=== PATIENT | female | born 1950 | race Caucasian/White ===

== ENCOUNTER 2018-10-17 22:29 | Inpatient (IN) | payer MEDICARE, MEDICAID ==
[~2018-10-17] VITALS: Ht 182.9 cm; Wt 93.8 kg
[2018-10-18] VITALS: BP 149/88
[2018-10-18] MEDS ORDERED: GUAIFENESIN/COD200MG-20MG/10ML LIQUID PO PRN (00:30)
[2018-10-18] MEDS ORDERED: hydrALAzine 20 MG/ML, 1ML IVPush PRN (00:30)
[2018-10-18] MEDS ORDERED: ACET500T76 PO (00:52)
[2018-10-18] MEDS ORDERED: LEVO88TA2 PO (00:54)
[2018-10-18] MEDS ORDERED: PREG225C PO (00:55)
[2018-10-18] MEDS ORDERED: METO50TA6 PO (00:57)
[2018-10-18] MEDS ORDERED: AMLO10TA8 PO (00:58)
[2018-10-18] MEDS ORDERED: GLIP5TAB10 PO (00:59)
[2018-10-18] MEDS ORDERED: SAXA5TAB PO (00:59)
[2018-10-18] MEDS ORDERED: ALLO100T30 PO (01:00)
[2018-10-18] MEDS ORDERED: PLEASE ENTER ALLERGIES MC SCH (01:00)
[2018-10-18] MEDS ORDERED: ACETAMINOPHEN 500 MG TABLET PO PRN (01:00)
[2018-10-18] MEDS ORDERED: HYDR-3237 PO (01:01)
[2018-10-18] MEDS ORDERED: METH750T2 PO (01:01)
[2018-10-18] MEDS ORDERED: CHOL1CRY3 IV (01:03)
[2018-10-18] MEDS ORDERED: SIMV40TA3 PO (01:04)
[2018-10-18] MEDS ORDERED: HYDR25PO5 PO (01:04)
[2018-10-18] MEDS ORDERED: AROM1FL. PO (01:05)
[2018-10-18] MEDS ORDERED: MAGN400T36 PO (01:06)
[2018-10-18] MEDS ORDERED: TIOT4MIS5 INH (01:07)
[2018-10-18] MEDS: methylPREDNISolone SOD SUCC 40 MG/ML IVPush SCH ×4 (01:25→18:48)
[2018-10-18] MEDS: SODIUM CHLORIDE 0.9% 1,000 ML IV SCH ×3 (01:25→23:01)
[2018-10-18] MEDS: OXYcodone IR 5MG TABLET PO PRN ×3 (01:25→20:26)
[2018-10-18 01:33] VITALS: BP 149/88
[2018-10-18] MEDS ORDERED: ALBUTEROL/IPRATROPIUM 2.5MG/0.5MG, 3 ML ONE (02:10)
[2018-10-18] MEDS: ALBUTEROL/IPRATROPIUM 2.5MG/0.5MG, 3 ML NPPB SCH ×6 (02:13→19:53)
[2018-10-18 04:41] LABS: BASOPHILS % (AUTO) 0 % (0-1); EOSINOPHILS % (AUTO) 0 % (1-7); LYMPHOCYTES # (AUTO) 0.52 x10^3/uL (1-3.4); LYMPHOCYTES % (AUTO) 7 % (22-44); MD NO; MEAN CORPUSCULAR HGB CONC 34.4 g/dL (32.4-35.8); MEAN CORPUSCULAR VOLUME 90.1 fL (80-100); MEAN PLATELET VOLUME 8.7 fL (7.4-10.4); MONOCYTES # (AUTO) 0.02 x10^3/uL (0.2-0.8); MONOCYTES % (AUTO) 0 % (2-9); NEUTROPHILS # (AUTO) 7.51 x10^3/uL (1.8-6.8); NEUTROPHILS % (AUTO) 93 % (42-75); PLATELET COUNT 258 x10^3/uL (130-400); RED CELL DISTRIBUTION WIDTH 16.6 % (9.6-15.2)
[2018-10-18 04:51] LABS: ANION GAP 12 mmol/L (5-15); CALCIUM 9.2 mg/dL (8.5-10.1); CHLORIDE 97 mmol/L (98-107)
[2018-10-18 05:12] LABS: HEMOGLOBIN A1C 8.3 % (4.2-6.3)
[2018-10-18] MEDS: INSULIN LISPRO 100 UNITS/ML, PEN SQ-INSULIN SCH ×4 (07:00→20:58)
[2018-10-18] MEDS ORDERED: INSULIN LISPRO 100 UNITS/ML, PEN SQ-INSULIN STA (08:49)
[2018-10-18] MEDS ORDERED: INSULIN GLARGINE 100 UNITS/ML, PEN SQ-INSULIN STA (08:50)
[2018-10-18 08:58] VITALS: BP 151/79
[2018-10-18] MEDS: DOXYCYCLINE 50MG CAPSULE PO SCH ×2 (09:00→20:58)
[2018-10-18] MEDS: CEFTRIAXONE PMX 2GM/50ML 50 ML IV SCH (09:12)
[2018-10-18] MEDS ORDERED: LIDOCAINE-MPF 1%, 5ML ONE (10:50)
[2018-10-18] MEDS ORDERED: NALOXONE 1 MG/ML, 2ML ONE (11:33)
[2018-10-18] MEDS ORDERED: MIDAZOLAM 1 MG/ML, 5ML ONE (11:33)
[2018-10-18] MEDS ORDERED: FENTANYL PF 100 MCG/2ML ONE (11:33)
[2018-10-18] MEDS ORDERED: FLUMAZENIL 0.1 MG/1 ML, 5ML ONE (11:33)
[2018-10-18] MEDS ORDERED: DOXYCYCLINE 100MG TABLET ONE ×2 (12:22→12:27)
[2018-10-18 14:20] VITALS: BP 147/73
[2018-10-18] MEDS ORDERED: INSULIN GLARGINE 100 UNITS/ML, PEN SQ-INSULIN ONE (16:19)
[2018-10-18] MEDS ORDERED: INSULIN LISPRO 100 UNITS/ML, PEN SQ-INSULIN ONE ×2 (16:19→21:30)
[2018-10-18 19:00] VITALS: BP 157/77
[2018-10-18] MEDS ORDERED: INSULIN GLARGINE 100 UNITS/ML, PEN SQ-INSULIN SCH (21:00)
[2018-10-18] MEDS ORDERED: INSULIN LISPRO 100 UNITS/ML, PEN SQ-INSULIN SCH (21:00)
[2018-10-19] MEDS: ALBUTEROL/IPRATROPIUM 2.5MG/0.5MG, 3 ML NPPB SCH ×3 (00:11→10:52)
[2018-10-19] MEDS: OXYcodone IR 5MG TABLET PO PRN ×3 (00:34→10:10)
[2018-10-19] MEDS: methylPREDNISolone SOD SUCC 40 MG/ML IVPush SCH ×2 (00:53→06:12)
[2018-10-19 00:57] VITALS: BP 168/84
[2018-10-19 04:56] LABS: ALANINE AMINOTRANSFERASE 18 U/L (12-78); ANION GAP 8 mmol/L (5-15); CALCIUM 8.7 mg/dL (8.5-10.1); CHLORIDE 98 mmol/L (98-107)
[2018-10-19 04:59] LABS: ALKALINE PHOSPHATASE 142 U/L (45-117); BILIRUBIN,TOTAL 0.3 mg/dL (0.2-1.0); CREATININE 0.97 mg/dL (0.55-1.02); TOTAL PROTEIN 6.7 g/dL (6.4-8.2)
[2018-10-19 05:15] LABS: BASOPHILS % (AUTO) 0 % (0-1); EOSINOPHILS % (AUTO) 0 % (1-7); LYMPHOCYTES # (AUTO) 0.44 x10^3/uL (1-3.4); LYMPHOCYTES % (AUTO) 4 % (22-44); MD NO; MEAN CORPUSCULAR HGB CONC 34.3 g/dL (32.4-35.8); MEAN CORPUSCULAR VOLUME 90.3 fL (80-100); MEAN PLATELET VOLUME 9.3 fL (7.4-10.4); MONOCYTES # (AUTO) 0.18 x10^3/uL (0.2-0.8); MONOCYTES % (AUTO) 2 % (2-9); NEUTROPHILS # (AUTO) 9.92 x10^3/uL (1.8-6.8); NEUTROPHILS % (AUTO) 94 % (42-75); PLATELET COUNT 255 x10^3/uL (130-400); RED BLOOD COUNT 3.49 x10^6/uL (3.82-5.3); RED CELL DISTRIBUTION WIDTH 16.9 % (9.6-15.2)
[2018-10-19] MEDS ORDERED: INSULIN GLARGINE 100 UNITS/ML, PEN SQ-INSULIN ONE ×2 (05:30→11:30)
[2018-10-19] MEDS: INSULIN LISPRO 100 UNITS/ML, PEN SQ-INSULIN SCH (07:00)
[2018-10-19] MEDS ORDERED: INSULIN LISPRO 100 UNITS/ML, PEN SQ-INSULIN SCH (07:30)
[2018-10-19 07:32] VITALS: BP 154/89
[2018-10-19] MEDS ORDERED: INSULIN LISPRO 100 UNITS/ML, PEN SQ-INSULIN ONE ×2 (08:30→11:30)
[2018-10-19] MEDS: CEFTRIAXONE PMX 2GM/50ML 50 ML IV SCH (09:07)
[2018-10-19] MEDS: DOXYCYCLINE 50MG CAPSULE PO SCH (09:07)
[2018-10-19] MEDS ORDERED: MAGNESIUM SULFATE PMX 2GM/50ML 50 ML IV ONE (10:00)
[2018-10-19] MEDS ORDERED: POTASSIUM PHOSPHATE 44 MEQ in SODIUM CHLORIDE 0.9% 500 ML IV ONE (10:00)
[2018-10-19 12:21] VITALS: BP 155/78
== END 2018-10-19 13:53 | disposition left against medical advice (07) | DRG 189 ==
LOC: 3NW 23:57
PROVIDERS: ADMIT Family Medicine; ATTEND Family Medicine
PROC: 0BBJ3ZX Excision of Left Lower Lung Lobe, Percutaneous Approach, Diagnostic (ICD-10-PCS; principal; 2018-10-18)
PROC: 0WJB3ZZ Inspection of Left Pleural Cavity, Percutaneous Approach (ICD-10-PCS; 2018-10-18)
DX: J96.20 Acute and chronic respiratory failure, unspecified whether with hypoxia or hypercapnia (principal); J18.9 Pneumonia, unspecified organism; N17.0 Acute kidney failure with tubular necrosis; J44.1 Chronic obstructive pulmonary disease with (acute) exacerbation; J90 Pleural effusion, not elsewhere classified; E46 Unspecified protein-calorie malnutrition; J44.0 Chronic obstructive pulmonary disease with (acute) lower respiratory infection; R91.8 Other nonspecific abnormal finding of lung field; E03.9 Hypothyroidism, unspecified; E11.9 Type 2 diabetes mellitus without complications; E78.5 Hyperlipidemia, unspecified; E83.39 Other disorders of phosphorus metabolism; Z79.4 Long term (current) use of insulin; Z87.891 Personal history of nicotine dependence; Z68.28 Body mass index [BMI] 28.0-28.9, adult
CPT/HCPCS: 32405; 32555; 36415; 71045; 77012; 80048; 80053; 82947; 82962; 83036; 83735; 84100; 84443; 85025; 88305; 88341; 88342; 88360; 94640; 99156; 99157; G0378; J0696; J2250; J3010; J7620; J1815; J2310; J2920; J7030; J7040